=== PATIENT | female | born 1945 | race Caucasian/White ===

== ENCOUNTER → 2024-05-15 16:27 | Inpatient (IN) | payer MEDICARE ==
[2024-05-08 14:46] LABS: BILIRUBIN,URINE NEGATIVE (Neg); CLARITY,URINE SLIGHTLY CLOUDY (Clear); COLOR,URINE YELLOW (Yellow); GLUCOSE, URINE NEGATIVE (Neg); KETONES,URINE NEGATIVE (Neg); LEUKOCYTE ESTERASE ,URINE NEGATIVE (Neg); NITRITES, URINE NEGATIVE (Neg); OCCULT BLOOD,URINE TRACE-INTACT (Neg); PROTEIN,URINE NEGATIVE (Neg); UROBILINOGEN,URINE 0.2 E.U/dL (0.2-1.0)
[2024-05-08 14:50] LABS: UA COLLECTION TYPE NON-SPECIFIED
[2024-05-08 14:55] LABS: PRE OP PROTIME 10.3 SECONDS (9.0-12.0)
[2024-05-08 14:56] LABS: ALBUMIN 3.9 G/DL (3.4-5.0); ALBUMIN/GLOBULIN RATIO 1.1 (1.1-1.5); ALKALINE PHOSPHATASE 64 IU/L (46-116); BLOOD UREA NITROGEN 24 MG/DL (7-18); BUN/CREATININE RATIO 22.2 (10.0-20.0); CALCIUM 9.3 MG/DL (8.5-10.1); CHLORIDE 106 MMOL/L (99-107); CREATININE 1.08 MG/DL (0.40-0.90); PRE OP ALT 25 U/L (30-65); PRE OP ANION GAP 7 (8-16); PRE OP AST 21 U/L (10-37); PRE OP BILIRUB, TOTAL 0.4 MG/DL (0.0-1.0); PRE OP GLUCOSE 102 MG/DL (70-104); PRE OP POTASSIUM 4.3 MMOL/L (3.4-5.1); PRE OP SODIUM 141 MMOL/L (135-145); SQUAMOUS EPITHELIAL CELL,UR FEW /LPF (FEW); TOTAL CARBON DIOXIDE 28.2 MMOL/L (24-32); TOTAL PROTEIN 7.5 G/DL (6.4-8.2); eGFR 49 ML/MIN
[2024-05-08 15:03] LABS: BACTERIA,URINE FEW /HPF (Neg); RBC,URINE 0-2 /HPF (0-2); WBC,URINE 0-4 /HPF (0-4)
[2024-05-08 15:04] LABS: TRANSITIONAL EPI CELLS,URINE FEW /HPF
[2024-05-08 15:09] LABS: BASOPHILS # (AUTO) 0.1 X10'3 (0-0.2); BASOPHILS % (AUTO) 0.8 % (0-1); EOSINOPHILS # (AUTO) 0.2 X10'3 (0-0.9); LYMPHOCYTES # (AUTO) 2.1 X10'3 (1.1-4.8); LYMPHOCYTES % (AUTO) 27.2 % (21-51); MEAN CORPUSCULAR HEMOGLOBIN 29.8 PG (27.0-31.0); MEAN CORPUSCULAR VOLUME 90.3 FL (78-98); MONOCYTES # (AUTO) 0.7 X10'3 (0-0.9); NEUTROPHILS # (AUTO) 4.7 X10'3 (1.8-7.7); PRE OP HEMATOCRIT 39.4 % (35.0-45.0); PRE OP PLATELET COUNT 236 X10'3 (140-440); PRE OP WHITE BLOOD COUNT 7.6 10'3 (4.8-10.8); RED BLOOD COUNT 4.36 X10'6 (4.20-5.60); RED CELL DISTRIBUTION WIDTH 13.4 % (11.5-14.5)
[2024-05-14] VITALS (22 sets, daily range): BP systolic 123–154; BP diastolic 53–89; PULSE 73–93; RESP 11–18; TEMP 97.3–98.4; O2SAT 94–100
[2024-05-14] MEDS: famotidine 20mg tablet PO ONE ×2 (06:16→20:47)
[2024-05-14] MEDS: ringers solution, lacted 1,000 ML IV SCH (06:18)
[2024-05-14] MEDS: cefazolin 2gm/D5W 100mL 100 ML IV ONE (06:18)
[2024-05-14] MEDS: vancomycin 1,000mg inj IVT ONE (10:00)
[2024-05-14] MEDS: potassium cl 20mEq in 1/2 NS 1,000 ML IV SCH (13:45)
[2024-05-14] MEDS: ondansetron/PF 4mg/2ml inj IV PRN (17:22)
[2024-05-14] MEDS: cefazolin 2gm/D5W 100mL 100 ML IV SCH (17:31)
[2024-05-14] MEDS: normal saline 1000ml 1,000 ML IV SCH (18:30)
[2024-05-14] MEDS: ROSUVASTATIN CALCIUM 5 MG TABLET PO SCH (21:00)
[~2024-05-15] VITALS: Ht 172.7 cm; Wt 82.8 kg
[2024-05-15] VITALS: BP 137/67; PULSE 84; RESP 14; TEMP 97.6; O2SAT 97
[2024-05-15 04:00] VITALS: BP 122/65; PULSE 83; RESP 16; TEMP 97.6; O2SAT 98
[2024-05-15 06:00] VITALS: BP 122/65; PULSE 83; RESP 16; TEMP 97.6; O2SAT 98
[2024-05-15 07:04] LABS: BASOPHILS % (AUTO) 0.1 % (0-1); EOSINOPHILS % (AUTO) 0 % (0-6); HEMATOCRIT 37.3 % (35.0-45.0); HEMOGLOBIN 12.1 g/dl (12.0-16.0); LYMPHOCYTES # (AUTO) 1.7 X10'3 (1.1-4.8); LYMPHOCYTES % (AUTO) 11.5 % (21-51); MEAN CORPUSCULAR HGB CONC 32.4 g/dL (33.0-36.5); MEAN CORPUSCULAR VOLUME 89.4 FL (78-98); MONOCYTES # (AUTO) 1.6 X10'3 (0-0.9); MONOCYTES % (AUTO) 10.8 % (2-12); NEUTROPHILS # (AUTO) 11.4 X10'3 (1.8-7.7); NEUTROPHILS % (AUTO) 77.6 % (42-75); PLATELET COUNT 216 X10'3 (140-440); RED BLOOD COUNT 4.17 X10'6 (4.20-5.60); RED CELL DISTRIBUTION WIDTH 13.5 % (11.5-14.5); WHITE BLOOD COUNT 14.7 X10'3 (4.5-11.0)
[2024-05-15 07:29] LABS: ALANINE AMINOTRANSFERASE 22 U/L (12-78); ALBUMIN 3.3 G/DL (3.4-5.0); ALKALINE PHOSPHATASE 58 IU/L (46-116); ANION GAP 9 (8-16); ASPARTATE AMINO TRANSFERASE 20 U/L (10-37); BILIRUBIN,TOTAL 0.3 MG/DL (0.1-1.0); BLOOD UREA NITROGEN 24 MG/DL (7-18); BUN/CREATININE RATIO 21.8 (10.0-20.0); CHLORIDE 106 MMOL/L (99-107); GLUCOSE 108 MG/DL (70-104); POTASSIUM 4.2 MMOL/L (3.5-5.1); SODIUM 140 MMOL/L (135-145); TOTAL CARBON DIOXIDE 24.9 MMOL/L (24-32); TOTAL PROTEIN 6.7 G/DL (6.4-8.2); eCRCL 41 ML/MIN; eGFR 48 ML/MIN
[2024-05-15 08:30] VITALS: RESP 18
[2024-05-15] MEDS: aspirin 325mg tablet PO SCH (08:48)
[2024-05-15] MEDS: traMADol 50MG tablet PO PRN (08:49)
[2024-05-15] MEDS: loratadine 10mg tablet PO SCH (08:51)
[2024-05-15] MEDS: amLODIPine 2.5mg tablet PO SCH (08:55)
[2024-05-15 08:56] VITALS: BP_SYST 159; PULSE 89
[2024-05-15] MEDS: losartan 50mg tablet PO SCH (08:56)
[2024-05-15 11:32] VITALS: RESP 18
[2024-05-15] MEDS: traMADol 50MG tablet PO ONE (11:32)
[~2024-05-15 16:27] MED LIST: AMLO2.5T5 PO; ASPI-1 PO; BUPIVACAINE liposomal/PF 13.3 MG/ML vial IM ONE; BUPIVAcaine/PF 5 mg/ml 10ml ONE; LIDOcaine 2% (20mg/ml) 5ml vial ONE; LORA10TA7 PO; LOSA100T58 PO; PANT-47 PO; POLY17PO10 PO; ROSU10TA72 PO; TRAM50TA2 PO; Thrombin (Bovine) 5,000 unit vial TP ONE; acetaminophen 1,000mg/100ml IV 100 ML IV ONE; acetaminophen 325mg tablet PO PRN; bisacodyl 10mg suppository rectal RC PRN; dexamethasone sod phosphate 4mg/ml inj. ONE; diphenhydrAMINE 25mg capsule PO PRN; ePHEDrine 50MG/ML INJ. ONE; fentaNYL/PF 50MCG/1 ML 2ML syringe IV PRN; fentaNYL/PF 50MCG/1 ML 2ML syringe ONE; gelatin sponge, absorbable (Gelfoam 100) sponge TP ONE; hydrALAZINE 20mg/ml inj. IV PRN; labetalol 20mg/4ml (5mg/ml) syringe IV PRN; magnesium hydroxide 30ml (MOM) UD suspension PO PRN; methylene blue (5mg/ml) 50mg/10ml ampul IV ONE; midazolam 1 mg/ML 2ml injection ONE; morphine 4 MG/ML inj SYRINge IV PRN; naloxone 0.4 mg/ml inj IV PRN; ondansetron/PF 4mg/2ml inj IV PRN; ondansetron/PF 4mg/2ml inj ONE; phenylephrine 10mg/ml inj. -priapism dosing ONE; propofol inj 20 ML IV ONE; ringers solution, lacted 1,000 ML IV SCH; sevoflurane 250ml liquid IH ONE; succinylcholine 20mg/ml inj IV ONE; tranexamic acid inj. 1,000 MG in normal saline IV soln 100ML IV ONE; vancomycin 1,000mg inj ONE
== END | disposition home health service (06) | DRG 483 ==
LOC: ORTHO 4S 05-14 05:23 → UNDOADMIN 05-14 05:23 → ORTHO 4S 05-14 05:23 → PAS 05-14 05:23 → UNDOADMIN 05-14 07:01 → ORTHO 4S 05-14 07:01 → PAS 05-14 07:11 → EDSTATUS 05-14 07:30 → UNDODISIN 16:27
PROVIDERS: ADMIT Specialist; ATTEND Specialist
PROC: 0LS40ZZ Reposition Left Upper Arm Tendon, Open Approach (ICD-10-PCS; 2024-05-14)
PROC: 0RRK00Z Replacement of Left Shoulder Joint with Reverse Ball and Socket Synthetic Substitute, Open Approach (ICD-10-PCS; principal; 2024-05-14 07:55)
DX: M19.012 Primary osteoarthritis, left shoulder (principal); N17.9 Acute kidney failure, unspecified; I10 Essential (primary) hypertension; E78.5 Hyperlipidemia, unspecified; Z90.710 Acquired absence of both cervix and uterus; Z88.0 Allergy status to penicillin; Z88.8 Allergy status to other drugs, medicaments and biological substances
CPT/HCPCS: 36415; 71046; 73030; 76000; 80053; 81001; 82948; 85025; 85610; 85730; 86885; 86900; 86901; 87081; 97110; 97161; 97530; A4565; A4618; A6449; A6455; A7000; C1776; C9290; G0378; J0131; J0330; J0665; J0690; J1100; J2250; J2370; J2405; J2704; J3010; J3370; J3480; J3490; J7030; J7120; Q9968